=== PATIENT | male | born 1995 | race Hispanic/Latino ===

== ENCOUNTER 2019-03-26 11:58 | Emergency (ER) | payer BC ==
[~2019-03-26] VITALS: Ht 172.7 cm; Wt 83.9 kg
[2019-03-26] MEDS ORDERED: CEFAZOLIN SOD 1 GM VIAL IV STA (12:10)
[2019-03-26] MEDS ORDERED: CEFAZOLIN SOD 1 GM/NS 50ML 50 ML IV ONE (13:00)
[2019-03-26] MEDS ORDERED: LIDOCAINE HCL 2% LOCAL 20 ML VIAL INJ ONE (13:00)
[2019-03-26] MEDS ORDERED: KEFLEX500 MG PO (13:26)
[2019-03-26] MEDS ORDERED: TYLENOL WITH C1 EACH PO (13:26)
[2019-03-26 13:50] VITALS: BP 124/76
--- NOTE | 2019-03-26 14:17 | Diagnostic Imaging Report ---
RIGHT INDEX FINGER X-RAY - 3 VIEWS HISTORY: ^right index finger rule out distal phalanx/tuft fracture ^[id number] ^[id number] COMPARISON: None available. FINDINGS: Bones: Acute mildly displaced transverse fracture of the distal aspect of the index finger. Osseous alignment is within normal limits. Joints: The joint spaces are well-maintained. Soft tissues: Soft tissue swelling and mild soft tissue laceration surrounding the distal index finger. IMPRESSION: Acute mildly displaced fracture of the distal right index finger. Signed by: Dr. Rebecca Bethea M.D. on 03/26/2019 2:14 PM
== END 2019-03-26 14:00 | disposition home or self-care (01) ==
LOC: ER 11:58
DX: S62.660B Nondisplaced fracture of distal phalanx of right index finger, initial encounter for open fracture (principal); W31.89XA Contact with other specified machinery, initial encounter; Y93.G3 Activity, cooking and baking; Y99.0 Civilian activity done for income or pay
CPT/HCPCS: 12001; 73140; 99284; J0690

== ENCOUNTER 2024-01-29 22:24 | Emergency (ER) | payer BC ==
[~2024-01-29] VITALS: Ht 172.7 cm; Wt 102.5 kg
[~2024-01-29 22:24] MED LIST: KEFLEX500 MG PO; TYLENOL WITH C1 EACH PO
[2024-01-29 22:30] VITALS: PULSE 73; RESP 18; TEMP 98.6; O2SAT 98
[2024-01-30] MEDS ORDERED: AUGMENTIN 500-1 EACH PO (00:09)
[2024-01-30] MEDS ORDERED: MEDROL4 M2 PO (00:13)
[2024-01-30] MEDS: LIDOCAINE HCL 1% LOCAL INJ 20 ML VIAL INJ ONE (00:20)
[2024-01-30] MEDS: AMOXICILLIN/CLAVULANATE K 875 MG TAB PO ONE (00:20)
[2024-01-30] MEDS: BACITRACIN ZINC 0.9GM TP ONE (00:20)
== END 2024-01-30 00:15 | disposition home or self-care (01) ==
LOC: FSED 22:33
DX: S62.623B Displaced fracture of middle phalanx of left middle finger, initial encounter for open fracture (principal); W54.0XXA Bitten by dog, initial encounter; Y92.019 Unspecified place in single-family (private) house as the place of occurrence of the external cause; S01.551A Open bite of lip, initial encounter
CPT/HCPCS: 12001; 99283; J2001